=== PATIENT | male | born 1935 | race Caucasian/White ===

== ENCOUNTER → 2016-09-08 | Outpatient (CLI) | payer OTHER ==
[~2016-09-08] MED LIST: ALTACE10 MG PO; ATORVASTATIN CA20 MG PO; CELEBREX200 MG PO; EPIPEN ADU0.3 MG/0.3 IM; LEVSIN0.125 MG PO; LO-DOSE ASPIRIN81 M2 PO; MEMANTINE HCL5 MG PO; PLAVIX75 MG PO; PROTONIX40 MG PO; SOLARAZE 3% GEL50 GM TP; TOPROL XL25 MG PO; TRAZODONE HCL100 MG PO; VIAGRA100 MG PO; VIIBRYD40 MG PO
[2016-09-08 12:33] LABS: BASE EXCESS 3.1 mEq/L (-3 to +3); CARBOXY HGB 2.5 % (0-5); METHEMOGLOBIN 1.2 % (0-1.5); PCO2 38 mm Hg (35-45); PO2 74 mm Hg (80-100); pH 7.46 (7.35-7.45)
[2016-09-08 12:34] LABS: COMMENTS - BLOOD GASES A+C+; DEVICE RA; O2 FLOW 0 L/MIN; SITE LR; TOTAL RESP RATE 18 resp/min
== END | disposition home or self-care (01) ==
LOC: RES 11:52
PROVIDERS: Thoracic Surgery (Cardiothoracic Vascular Surgery)
DX: C34.90 Malignant neoplasm of unspecified part of unspecified bronchus or lung (principal)
CPT/HCPCS: 36600; 82803

== ENCOUNTER 2016-09-13 05:07 | Day surgery (SDC) | payer OTHER ==
[~2016-09-13] VITALS: Ht 170.2 cm; Wt 71.2 kg
[2016-09-13 06:05] LABS: EOSINOPHIL (%) 2.7 % (0-5); EOSINOPHIL COUNT 0.1 K/uL (0-0.3); HEMATOCRIT 35.4 % (38.0-50.0); IMMATURE GRANULOCYTE (%) 0.2 % (0.0-0.7); IMMATURE GRANULOCYTE COUNT 0.1 K/uL; LYMPHOCYTE COUNT 1.4 K/uL (1.0-2.8); MCH 30.8 PG (29.0-34.0); MCHC 34.2 G/DL (30.0-36.0); MCV 90.1 FL (86-99); MEAN PLAT.VOLUME 8.9 uM^3 (9.0-12.4); MONOCYTE (%) 11.6 % (3-12); MONOCYTE COUNT 0.6 K/uL (0-0.8); NEUTROPHIL (%) 57.8 % (45-76); NEUTROPHIL COUNT 3.1 K/uL (1.8-6.4); PLATELET COUNT 194 K/uL (156-360); RBC DIS.WIDTH-CV 13.3 % (11.8-14.6); RBC DIS.WIDTH-SD 42.7 % (39-53); RED BLOOD COUNT 3.93 M/uL (4.00-5.50); WHITE BLOOD COUNT 5.3 K/uL (4.1-10.2)
[2016-09-13 06:06] VITALS: BP 148/70
[2016-09-13 06:12] LABS: CHLORIDE 107 mEq/L (99-109); POTASSIUM 3.7 mEq/L (3.7-5.4); SODIUM 141 mEq/L (136-147)
[2016-09-13 06:15] LABS: GLUCOSE 91 mg/dL (70-99)
[2016-09-13 06:16] LABS: ANION GAP 10 MEQ/L (2-14)
[2016-09-13 06:17] LABS: TOTAL BILIRUBIN 0.5 mg/dL (0.0-1.0)
[2016-09-13 06:18] LABS: ALKALINE PHOSPHATASE 56 IU/L (3-129); GFR ESTIMATE (CALCULATED) > 59 mL/min/
[2016-09-13 06:19] LABS: UREA NITROGEN (BUN) 18 mg/dL (9-23)
[2016-09-13 09:55] VITALS: BP 167/63
[2016-09-13 10:59] VITALS: BP 175/70
[2016-09-15] MEDS ORDERED: FISH OIL 1,0001 EAC7 PO (13:41)
[2016-09-15] MEDS ORDERED: DAILY MULTIPLE1 EACH PO (13:41)
[2016-09-15] MEDS ORDERED: ANORO ELLIPTA1 EACH IH (13:53)
== END 2016-09-13 11:04 | disposition home or self-care (01) ==
LOC: SDC 05:07
PROVIDERS: Thoracic Surgery (Cardiothoracic Vascular Surgery)
PROC: 07B74ZX Excision of Thorax Lymphatic, Percutaneous Endoscopic Approach, Diagnostic (ICD-10-PCS; principal; 2016-09-13)
DX: C34.11 Malignant neoplasm of upper lobe, right bronchus or lung (principal); J44.9 Chronic obstructive pulmonary disease, unspecified; Z87.891 Personal history of nicotine dependence; I73.9 Peripheral vascular disease, unspecified; Z95.820 Peripheral vascular angioplasty status with implants and grafts; Z79.82 Long term (current) use of aspirin; I10 Essential (primary) hypertension; Z88.2 Allergy status to sulfonamides; Z88.5 Allergy status to narcotic agent; Z88.6 Allergy status to analgesic agent; Z91.013 Allergy to seafood
CPT/HCPCS: 80053; 85025; 86850; 86900; 86901; 88305; J0330; J0690; J1100; J2250; J2405; J2710; J3010

== ENCOUNTER 2016-09-20 06:21 | Inpatient (IN) | payer OTHER ==
[~2016-09-20] VITALS: Ht 170.2 cm; Wt 63.7 kg
[2016-09-20] VITALS (7 sets, daily range): BP systolic 80–171; BP diastolic 40–73
[~2016-09-20 06:21] MED LIST changes: +ANORO ELLIPTA1 EACH IH; +DAILY MULTIPLE1 EACH PO; +FISH OIL 1,0001 EAC7 PO
[2016-09-20 08:22] LABS: PROTHROMBIN TIME 10.4 (9.2-11.2)
[2016-09-20 20:59] LABS: METH RESISTANT S AUREUS PCR NEGATIVE (NEGATIVE); PROBE CHECK PASS; SPECIMEN PROCESSING CONTROL PASS
[2016-09-21] VITALS (13 sets, daily range): BP systolic 77–166; BP diastolic 43–60
[2016-09-21 06:16] LABS: HEMATOCRIT 27.9 % (38.0-50.0); MCH 30.8 PG (29.0-34.0); MCHC 33.7 G/DL (30.0-36.0); MCV 91.5 FL (86-99); MEAN PLAT.VOLUME 9.6 uM^3 (9.0-12.4); PLATELET COUNT 151 K/uL (156-360); RBC DIS.WIDTH-CV 13.6 % (11.8-14.6); RBC DIS.WIDTH-SD 44.6 % (39-53)
[2016-09-21 06:22] LABS: ANION GAP 7 MEQ/L (2-14); CHLORIDE 105 MEQ/L (99-109); GFR ESTIMATE (CALCULATED) > 59 mL/min/; GLUCOSE 82 mg/dL (70-99); POTASSIUM 4.9 MEQ/L (3.7-5.4); SAMPLE HEMOLYSIS CHECK 0; SAMPLE ICTERIC CHECK 0; SAMPLE LIPEMIA CHECK 0; SODIUM 140 MEQ/L (136-147); UREA NITROGEN (BUN) 24 mg/dL (9-23)
[2016-09-21 06:24] LABS: RED BLOOD COUNT 3.05 M/uL (4.00-5.50); WHITE BLOOD COUNT 7.7 K/uL (4.1-10.2)
[2016-09-21 20:59] LABS: BASE EXCESS 4.1 mEq/L (-3 to +3); BICARBONATE 28.5 mEq/L (22-26); METHEMOGLOBIN 1.1 % (0-1.5); PCO2 41 mm Hg (35-45); PO2 75 mm Hg (80-100); pH 7.45 (7.35-7.45)
[2016-09-21 21:00] LABS: COMMENTS - BLOOD GASES A+C+; DEVICE NC; O2 FLOW 5 L/MIN; SITE RR; TOTAL RESP RATE 16 resp/min
[2016-09-22] VITALS: BP 138/41
[2016-09-22 04:00] VITALS: BP 176/60
[2016-09-22 05:50] LABS: HEMATOCRIT 26.5 % (38.0-50.0); MCH 30.9 PG (29.0-34.0); MCHC 33.2 G/DL (30.0-36.0); MEAN PLAT.VOLUME 9.6 uM^3 (9.0-12.4); PLATELET COUNT 128 K/uL (156-360); RBC DIS.WIDTH-CV 13.8 % (11.8-14.6); RBC DIS.WIDTH-SD 46.7 % (39-53); RED BLOOD COUNT 2.85 M/uL (4.00-5.50); WHITE BLOOD COUNT 6.9 K/uL (4.1-10.2)
[2016-09-22 06:14] LABS: ANION GAP 6 MEQ/L (2-14); CHLORIDE 104 MEQ/L (99-109); GFR ESTIMATE (CALCULATED) > 59 mL/min/; GLUCOSE 74 mg/dL (70-99); POTASSIUM 4.5 MEQ/L (3.7-5.4); SAMPLE HEMOLYSIS CHECK 0; SAMPLE ICTERIC CHECK 0; SAMPLE LIPEMIA CHECK 0; SODIUM 138 MEQ/L (136-147); UREA NITROGEN (BUN) 18 mg/dL (9-23)
[2016-09-22 08:00] VITALS: BP 154/55
[2016-09-22 13:00] VITALS: BP 186/59
[2016-09-22 16:00] VITALS: BP 174/67
[2016-09-22 20:00] VITALS: BP 156/52
[2016-09-23] VITALS (10 sets, daily range): BP systolic 128–193; BP diastolic 52–85
[2016-09-23 05:52] LABS: HEMATOCRIT 28.8 % (38.0-50.0); MCH 30.5 PG (29.0-34.0); MCHC 33.3 G/DL (30.0-36.0); MCV 91.4 FL (86-99); MEAN PLAT.VOLUME 9.6 uM^3 (9.0-12.4); PLATELET COUNT 159 K/uL (156-360); RBC DIS.WIDTH-CV 13.4 % (11.8-14.6); RBC DIS.WIDTH-SD 44.4 % (39-53); RED BLOOD COUNT 3.15 M/uL (4.00-5.50); WHITE BLOOD COUNT 7.5 K/uL (4.1-10.2)
[2016-09-23 06:33] LABS: ANION GAP 7 MEQ/L (2-14); CHLORIDE 102 MEQ/L (99-109); GFR ESTIMATE (CALCULATED) > 59 mL/min/; POTASSIUM 4.6 MEQ/L (3.7-5.4); SAMPLE HEMOLYSIS CHECK 0; SAMPLE ICTERIC CHECK 0; SAMPLE LIPEMIA CHECK 0; SODIUM 138 MEQ/L (136-147); UREA NITROGEN (BUN) 17 mg/dL (9-23)
[2016-09-23 06:34] LABS: GLUCOSE 109 mg/dL (70-99)
[2016-09-24] VITALS (9 sets, daily range): BP systolic 99–185; BP diastolic 52–75
[2016-09-25] VITALS (7 sets, daily range): BP systolic 154–187; BP diastolic 57–76
[2016-09-25 08:53] LABS: HEMATOCRIT 32.2 % (38.0-50.0); MCHC 34.5 G/DL (30.0-36.0); MCV 89.9 FL (86-99); RBC DIS.WIDTH-CV 13.5 % (11.8-14.6); RBC DIS.WIDTH-SD 44.1 % (39-53); RED BLOOD COUNT 3.58 M/uL (4.00-5.50)
[2016-09-25 08:57] LABS: MEAN PLAT.VOLUME 9.3 uM^3 (9.0-12.4); PLATELET COUNT 219 K/uL (156-360)
[2016-09-25 09:16] LABS: ANION GAP 9 MEQ/L (2-14); CHLORIDE 102 MEQ/L (99-109); GFR ESTIMATE (CALCULATED) > 59 mL/min/; GLUCOSE 102 mg/dL (70-99); MAGNESIUM 1.8 mg/dl (1.3-2.7); POTASSIUM 4.3 MEQ/L (3.7-5.4); SAMPLE HEMOLYSIS CHECK 0; SAMPLE ICTERIC CHECK 0; SAMPLE LIPEMIA CHECK 0; SODIUM 138 MEQ/L (136-147); UREA NITROGEN (BUN) 17 mg/dL (9-23)
[2016-09-25 09:22] LABS: POINT-OF-CARE METER ID UU14162636
[2016-09-26] VITALS (9 sets, daily range): BP systolic 136–177; BP diastolic 49–89
[2016-09-27] VITALS: BP 129/66
[2016-09-27 04:00] VITALS: BP 112/70; BP 122/68
[2016-09-27 08:00] VITALS: BP 156/74
[2016-09-27 12:00] VITALS: BP 141/72
[2016-09-27 16:30] VITALS: BP 146/76
[2016-09-27 20:00] VITALS: BP 160/62
[2016-09-28] VITALS (8 sets, daily range): BP systolic 115–182; BP diastolic 52–72
[2016-09-28 13:33] LABS: EOSINOPHIL (%) 0 % (0-5); HEMATOCRIT 32.7 % (38.0-50.0); IMMATURE GRANULOCYTE (%) 0.6 % (0.0-0.7); IMMATURE GRANULOCYTE COUNT 0.2 K/uL; LYMPHOCYTE COUNT 0.3 K/uL (1.0-2.8); MCH 30.5 PG (29.0-34.0); MCHC 33.9 G/DL (30.0-36.0); MCV 89.8 FL (86-99); MEAN PLAT.VOLUME 9.3 uM^3 (9.0-12.4); MONOCYTE (%) 4.8 % (3-12); MONOCYTE COUNT 1.3 K/uL (0-0.8); NEUTROPHIL (%) 93.2 % (45-76); NEUTROPHIL COUNT 24.5 K/uL (1.8-6.4); RBC DIS.WIDTH-CV 14.4 % (11.8-14.6); RED BLOOD COUNT 3.64 M/uL (4.00-5.50)
[2016-09-28 13:34] LABS: PLATELET COUNT 322 K/uL (156-360); WHITE BLOOD COUNT 26.3 K/uL (4.1-10.2)
[2016-09-28 13:55] LABS: ANION GAP 11 MEQ/L (2-14); CHLORIDE 103 MEQ/L (99-109); GFR ESTIMATE (CALCULATED) > 59 mL/min/; GLUCOSE 121 mg/dL (70-99); POTASSIUM 4.8 MEQ/L (3.7-5.4); SAMPLE HEMOLYSIS CHECK 0; SAMPLE ICTERIC CHECK 0; SAMPLE LIPEMIA CHECK 0; SODIUM 138 MEQ/L (136-147); UREA NITROGEN (BUN) 29 mg/dL (9-23)
[2016-09-29] VITALS (11 sets, daily range): BP systolic 97–206; BP diastolic 43–97
[2016-09-29 01:57] LABS: ADD MIUA? YES; BILIRUBIN NEGATIVE; BLOOD NEGATIVE; GLUCOSE (STRIP) NEGATIVE; KETONES NEGATIVE; LEUKOCYTES NEGATIVE; NITRITE NEGATIVE; PROTEIN (STRIP) 30; SPECIFIC GRAVITY 1.026 (1.000-1.030)
[2016-09-29 01:59] LABS: COLOR DK YELLOW ((YELLOW))
[2016-09-29 02:09] LABS: BACTERIA NONE SEEN /HPF; EPITHELIAL CELLS NONE SEEN /HPF; HYALINE CASTS 0-5 /LPF; MUCUS TRACE /LPF; RED BLOOD CELLS 0-5 /HPF (0-5); WHITE BLOOD CELLS 0-5 /HPF (0-5)
[2016-09-30] VITALS (15 sets, daily range): BP systolic 142–206; BP diastolic 44–89
[2016-09-30 09:11] LABS: ANION GAP 13 MEQ/L (2-14); CHLORIDE 109 MEQ/L (99-109); POTASSIUM 4.7 MEQ/L (3.7-5.4); SAMPLE HEMOLYSIS CHECK 1; SAMPLE ICTERIC CHECK 0; SAMPLE LIPEMIA CHECK 0; SODIUM 142 MEQ/L (136-147)
[2016-09-30 09:17] LABS: GFR ESTIMATE (CALCULATED) > 59 mL/min/; GLUCOSE 107 mg/dL (70-99)
[2016-09-30 09:18] LABS: UREA NITROGEN (BUN) 45 mg/dL (9-23)
[2016-09-30 09:19] LABS: HEMATOCRIT 31.3 % (38.0-50.0); MCH 31.1 PG (29.0-34.0); MCHC 34.8 G/DL (30.0-36.0); MCV 89.2 FL (86-99); RBC DIS.WIDTH-CV 14.5 % (11.8-14.6); RED BLOOD COUNT 3.51 M/uL (4.00-5.50)
[2016-09-30 09:24] LABS: WHITE BLOOD COUNT 15.5 K/uL (4.1-10.2)
[2016-09-30 10:21] LABS: PLATELET COUNT UNABLE TO REPORT K/uL (156-360)
[2016-09-30 11:42] LABS: C DIFF TOXIN ND (NEGATIVE)
[2016-10-01] VITALS (14 sets, daily range): BP systolic 56–138; BP diastolic 34–60
[2016-10-01 06:13] LABS: HEMATOCRIT 33.2 % (38.0-50.0); MCH 31.1 PG (29.0-34.0); MCHC 34.6 G/DL (30.0-36.0); MCV 89.7 FL (86-99); NRBC (%) 0.1 /100 WBC (0-0); RBC DIS.WIDTH-CV 14.4 % (11.8-14.6); RBC DIS.WIDTH-SD 47.3 % (39-53); WHITE BLOOD COUNT 11.9 K/uL (4.1-10.2)
[2016-10-01 06:37] LABS: EOSINOPHIL (%) 0 % (0-5); IMMATURE GRANULOCYTE (%) 0.8 % (0.0-0.7); IMMATURE GRANULOCYTE COUNT 0.1 K/uL; LYMPHOCYTE COUNT 0.7 K/uL (1.0-2.8); MEAN PLAT.VOLUME 10.2 uM^3 (9.0-12.4); MONOCYTE (%) 7.5 % (3-12); MONOCYTE COUNT 0.9 K/uL (0-0.8); NEUTROPHIL (%) 85.7 % (45-76); NEUTROPHIL COUNT 10.2 K/uL (1.8-6.4)
[2016-10-01 06:39] LABS: PLATELET COUNT 417 K/uL (156-360)
[2016-10-01 08:18] LABS: ANION GAP 17 MEQ/L (2-14); CHLORIDE 105 MEQ/L (99-109); GFR ESTIMATE (CALCULATED) 31 mL/min/; GLUCOSE 109 mg/dL (70-99); POTASSIUM 4.5 MEQ/L (3.7-5.4); SAMPLE HEMOLYSIS CHECK 0; SAMPLE ICTERIC CHECK 0; SAMPLE LIPEMIA CHECK 0; SODIUM 142 MEQ/L (136-147)
[2016-10-01 08:20] LABS: UREA NITROGEN (BUN) 76 mg/dL (9-23)
[2016-10-01 10:47] LABS: BASE EXCESS -14.2 mEq/L (-3 to +3); BICARBONATE 9.5 mEq/L (22-26); CARBOXY HGB 1.9 % (0-5); COMMENTS - BLOOD GASES +C; FI02 21 %; METHEMOGLOBIN 1.4 % (0-1.5); PCO2 18 mm Hg (35-45); PO2 102 mm Hg (80-100); SITE LR +A; TOTAL RESP RATE 28 resp/min; pH 7.33 (7.35-7.45)
[2016-10-01 11:20] LABS: CK-MB 3.5 ng/mL (0.0-4.9); TROP-I INTERPRETATION NEGATIVE; TROPONIN-I 0.18 ng/mL (0.0-0.30)
[2016-10-01 12:14] LABS: CREATINE KINASE 36 IU/L (1-294); TOTAL CK 36 IU/L (1-294)
[2016-10-01 15:00] LABS: BASE EXCESS -11.8 mEq/L (-3 to +3); BICARBONATE 14.6 mEq/L (22-26); CARBOXY HGB 1.6 % (0-5); DEVICE 840 VENTILATOR; FI02 100 %; METHEMOGLOBIN 1.6 % (0-1.5); PCO2 34 mm Hg (35-45); PO2 107 mm Hg (80-100); SITE RF
[2016-10-01 15:01] LABS: INSPIRATION TIME 0.7 seconds; MECHANICAL RATE 16 resp/min; MODE AC/VC+; PEEP 5 CM/H20; TIDAL VOLUME 450 ML; TOTAL RESP RATE 21 resp/min; pH 7.24 (7.35-7.45)
[2016-10-01 15:16] LABS: CHLORIDE 106 mEq/L (99-109)
[2016-10-01 15:19] LABS: ANION GAP 24 MEQ/L (2-14)
[2016-10-01 15:22] LABS: UREA NITROGEN (BUN) 82 mg/dL (9-23)
[2016-10-01 15:38] LABS: GFR ESTIMATE (CALCULATED) 20 mL/min/; POTASSIUM 7.5 mEq/L (3.7-5.4); SODIUM 155 mEq/L (136-147)
[2016-10-01 15:39] LABS: GLUCOSE 22 mg/dL (70-99)
[2016-10-01 17:05] LABS: POINT-OF-CARE METER ID UU13113803
[2016-10-01 18:41] LABS: BASE EXCESS -12.8 mEq/L (-3 to +3); CARBOXY HGB 1.4 % (0-5); COMMENTS - BLOOD GASES +C; METHEMOGLOBIN 1.7 % (0-1.5); PCO2 35 mm Hg (35-45); PO2 86 mm Hg (80-100); SITE A-LINE; pH 7.21 (7.35-7.45)
[2016-10-01 18:42] LABS: DEVICE PB840; FI02 100 %; MECHANICAL RATE 16 resp/min; MODE ACVC+; PEEP 5 CM/H20; TIDAL VOLUME 450 ML; TOTAL RESP RATE 25 resp/min
[2016-10-01 19:31] LABS: TROP-I INTERPRETATION POSITIVE; TROPONIN-I 1.77 ng/mL (0.0-0.30)
[2016-10-01 19:33] LABS: ANION GAP 28 MEQ/L (2-14); CHLORIDE 112 MEQ/L (99-109); GFR ESTIMATE (CALCULATED) 18 mL/min/; GLUCOSE 49 mg/dL (70-99); POTASSIUM 4.2 MEQ/L (3.7-5.4); SAMPLE HEMOLYSIS CHECK 0; SAMPLE ICTERIC CHECK 0; SAMPLE LIPEMIA CHECK 0; SODIUM 155 MEQ/L (136-147); TOTAL CK 317 IU/L (1-294); UREA NITROGEN (BUN) 87 mg/dL (9-23)
[2016-10-01 19:34] LABS: CREATINE KINASE 317 IU/L (1-294); MAGNESIUM 2.9 mg/dl (1.3-2.7)
[2016-10-01 19:44] LABS: HEMATOCRIT 24.9 % (38.0-50.0); MCH 30.4 PG (29.0-34.0); MCHC 32.1 G/DL (30.0-36.0); MEAN PLAT.VOLUME 10.3 uM^3 (9.0-12.4); RBC DIS.WIDTH-SD 51.4 % (39-53)
[2016-10-01 20:05] LABS: RED BLOOD COUNT 2.63 M/uL (4.00-5.50); WHITE BLOOD COUNT 4.6 K/uL (4.1-10.2)
[2016-10-01 20:06] LABS: MCV 94.7 FL (86-99); PLATELET COUNT 214 K/uL (156-360)
[2016-10-02 00:10] LABS: RED BLOOD COUNT 1.46 M/uL (4.00-5.50); WHITE BLOOD COUNT 4.4 K/uL (4.1-10.2)
[2016-10-02 00:14] LABS: POTASSIUM 4.9 mEq/L (3.7-5.4); SODIUM 155 mEq/L (136-147)
[2016-10-02 00:15] LABS: MAGNESIUM 1.9 mg/dL (1.3-2.7)
[2016-10-02 00:16] LABS: GLUCOSE 52 mg/dL (70-99)
[2016-10-02 00:18] LABS: ANION GAP 24 MEQ/L (2-14); TOTAL BILIRUBIN 0.8 mg/dL (0.0-1.0)
[2016-10-02 00:20] LABS: ALKALINE PHOSPHATASE 118 IU/L (3-129)
[2016-10-02 00:21] LABS: HEMATOCRIT 14.6 % (38.0-50.0); MCH 29.5 PG (29.0-34.0); MCHC 29.5 G/DL (30.0-36.0); RBC DIS.WIDTH-CV 14.9 % (11.8-14.6)
[2016-10-02 00:21] LABS: UREA NITROGEN (BUN) 65 mg/dL (9-23)
[2016-10-02 00:49] LABS: GFR ESTIMATE (CALCULATED) 22 mL/min/
[2016-10-02 01:01] LABS: CHLORIDE 123 mEq/L (99-109)
[2016-10-02 04:44] LABS: HEMATOCRIT 15.7 % (38.0-50.0); MCH 30.1 PG (29.0-34.0); MCHC 29.9 G/DL (30.0-36.0); MCV 100.6 FL (86-99); MEAN PLAT.VOLUME 10.1 uM^3 (9.0-12.4); PLATELET COUNT 130 K/uL (156-360); RBC DIS.WIDTH-CV 14.9 % (11.8-14.6); RBC DIS.WIDTH-SD 50.7 % (39-53); RED BLOOD COUNT 1.56 M/uL (4.00-5.50); WHITE BLOOD COUNT 4.1 K/uL (4.1-10.2)
[2016-10-02 04:58] LABS: MEAN PLAT.VOLUME 10.4 uM^3 (9.0-12.4); PLATELET COUNT 119 K/uL (156-360)
== END 2016-10-02 01:25 | DRG 164 ==
LOC: 2SOUTH 06:21 → 4WEST 06:21 → 2SOUTH 15:51 → 4WEST 19:19
PROVIDERS: Anesthesiology; Internal Medicine Pulmonary Disease; Surgery; Thoracic Surgery (Cardiothoracic Vascular Surgery)
DX: C34.90 Malignant neoplasm of unspecified part of unspecified bronchus or lung (principal); J93.82 Other air leak; F05 Delirium due to known physiological condition; E87.2 Acidosis; R41.0 Disorientation, unspecified; J44.9 Chronic obstructive pulmonary disease, unspecified; R91.1 Solitary pulmonary nodule; Z88.2 Allergy status to sulfonamides; Z91.013 Allergy to seafood; Z88.6 Allergy status to analgesic agent; R06.00 Dyspnea, unspecified; Z87.891 Personal history of nicotine dependence; R56.9 Unspecified convulsions; I46.9 Cardiac arrest, cause unspecified; R45.1 Restlessness and agitation; R09.02 Hypoxemia; I95.9 Hypotension, unspecified
CPT/HCPCS: 36600; 71010; 74020; 80048; 80048 91; 80053; 81003; 82550; 82550 91; 82553; 82803; 82948; 83605; 83735; 84100; 84484; 85025; 85027; 85610; 86850; 86900; 86901; 86920; 87040; 87070; 87075; 87077; 87086; 87106; 87147; 87186; 87205; 87493; 87641; 87801; 88309; 88313; 92950; 93005; 93306; 94002; 94010; 94640; 94640 76; 94760; 94799; 97530 GO; 97530 GP; 99202; C9113; J0360; J0461; J0690; J1100; J1160; J1170; J1630; J1644; J1885; J2060; J2250; J2370; J2405; J2543; J2550; J3010; J7030; J7050; J7070; J7120; J7512; S0020